=== PATIENT | male | born 1985 | race Two or more races ===

== ENCOUNTER 2016-07-16 18:14 | Emergency (ER) | payer OTHER ==
[2016-07-16 18:20] VITALS: BMI 24.7
[2016-07-16] MEDS ORDERED: SODIUM CHLORIDE 0.9% 1000 ML INFUS.BAG IV ONE (20:37)
--- NOTE | 2016-07-16 22:03 | PDOC ---
History of Present Illness - General Chief Complaint: Lightheaded Stated Complaint: NEAR SYNCOPE, BLURRED VISION Time Seen by Provider: 07/16/16 20:34 - History of Present Illness Initial Comments: 07/16/16 22:01 CHIEF COMPLAINT: dizziness, weakness HISTORY OF PRESENT ILLNESS: 31 yo M with no PMH presents to ED with dizziness, blurry vision, and near syncope while [place] in the park today. Patient reports that this is the third time this has happened and it began with " stomach problems" for which he was prescribed omeprazole by his PCP Dr. Inocencio Christopher with no relief. He stopped taking the omeprazole after 5 days. He states that he has had a decreased appetite for the past couple of weeks. He was previously taking many nutritional and herbal supplements including gingko biloba, ginseng, multivitamins, protein, and "pre-workout stuff", but since he has been feeling bad he stopped taking all of them approximately 2 weeks ago. He states that he has been having some weakness and fatigue and feels "like I am going to have a fever or get sick, but I don't." He does report that he has not been drinking a lot of water or fluids recently. PAST MEDICAL HISTORY: Denies past medical history FAMILY HISTORY: Denies SOCIAL HISTORY: Denies tobacco, alcohol, illicit drug use. SURGICAL HISTORY: Denies ALLERGIES: No known drug allergies REVIEW OF SYSTEMS General/Constitutional: Weakness, chills. No fever. HEENT: Blurry vision today. Denies ear pain or discharge. Denies sore throat. Cardiovascular: Denies chest pain or shortness of breath. Respiratory: Denies cough, wheezing, or hemoptysis. Gastrointestinal: Denies nausea, vomiting, diarrhea or constipation. Denies rectal bleeding. Genitourinary: Denies dysuria, frequency, or change in urination. Musculoskeletal: Denies joint or muscle swelling or pain. Denies neck or back pain. Skin and breasts: Denies rash or easy bruising. Neurologic: Lightheadedness. Denies vertigo loss of consciousness, or loss of sensation. PHYSICAL EXAM General Appearance: Well-appearing, appropriately dressed. No apparent distress. HEENT: EOMI, PERRLA, normal ENT inspection, normal voice, TMs normal, pharynx normal. No conjunctival pallor. No photophobia, scleral icterus. Respiratory/Chest: Lungs CTAB. Cardiovascular: RRR. S1, S2. Gastrointestinal/Abdominal: Marked tenderness to LLQ. Normal bowel sounds. No organomegaly, pulsatile mass, guarding, hernia, hepatomegaly, splenomegaly. Lymphatic: No adenopathy, tenderness. Musculoskeletal/Extremities: Normal inspection. FROM of all extremities, normal capillary refill. Pelvis Stable. No CVA tenderness. No tenderness to extremities, pedal edema, swelling, erythema or deformity. Integumentary: Appropriate color, dry, warm. No cyanosis, erythema, jaundice or rash Neurologic: teacher advisor II-XII intact. Fully oriented, alert. Appropriate mood/affect. Motor strength 5/5. No appreciable EOM palsy, facial droop or sensory deficit. 07/16/16 22:07 Past History - Past Medical History Allergies/Adverse Reactions: Allergies Allergy/AdvReac Type Severity Reaction Status Date / Time No Known Allergies Allergy Verified 07/16/16 18:20 Home Medications: Ambulatory Orders NK [No Known Home Medication] 07/16/16 Anemia: No Asthma: No Cancer: No Cardiac Disorders: No CVA: No COPD: No CHF: No DVT: No Psychiatric Problems: Yes (ANXIETY) - Immunization History Immunization Up to Date: No - Psycho/Social/Smoking Cessation Hx Anxiety: Yes Suicidal Ideation: No Smoking History: Never smoked Have you smoked in the past 12 months: No Information on smoking cessation initiated: No Hx Alcohol Use: No Drug/Substance Use Hx: No Substance Use Type: None Hx Substance Use Treatment: No *Physical Exam - Vital Signs Last Vital Signs Temp Pulse Resp BP Pulse Ox 71 18 135/91 98 07/16/16 18:17 07/16/16 18:17 07/16/16 18:17 07/16/16 18:17 ED Treatment Course - LABORATORY CBC & Chemistry Diagram: 07/17/16 01:08 07/16/16 22:12 *DC/Admit/Observation/Transfer Diagnosis at time of Disposition: Symptoms of dehydration - Discharge Dispostion Disposition: HOME Condition at time of disposition: Improved Admit: No - Referrals Referrals: Inocencio Christopher [Primary Care Provider] - - Patient Instructions Printed Discharge Instructions: DI for Dehydration -- Adult Additional Instructions: As discussed, please follow up with Dr. Christopher by the end of the week. Please drink plenty of fluids to stay hydrated when you exercise. If you experience any abdominal pain, nausea, vomiting, diarrhea, fever, chills, shortness of breath, chest pain, headache, or any new or worsening symptoms, please return to the ER immediately. - Post Discharge Activity Work/School Note: Back to Work
[2016-07-16 22:44] LABS: ALBUMIN 4.1 g/dl (3.4-5.0); ANION GAP 7 (8-16); BILIRUBIN,TOTAL 0.6 mg/dL (0.2-1.0); CO2 30 mmol/L (21-32); COCKROFT - GAULT 99.88; CREATININE 1.1 mg/dL (0.7-1.3); GLUCOSE,RANDOM 78 mg/dL (74-106); SGOT/AST 23 U/L (15-37); SGPT/ALT 45 U/L (12-78); TOT PROT 7.2 g/dl (6.4-8.2)
[2016-07-16 22:46] LABS: ALK PHOS 101 U/L (45-117); TROPONIN I < 0.02 ng/ml (0.00-0.05)
[2016-07-16] MEDS ORDERED: FOLIC ACID INJECTION - 1 MG, THIAMINE HCL 100 MG, MULTIVIT INJECTION ADULT 10 ML in SOD... IVPB ONE (23:14)
[2016-07-16] MEDS ORDERED: MECLIZINE HCL 25 MG TABLET (FP) PO ONE (23:14)
[2016-07-16] MEDS ORDERED: MECLIZINE HCL 25 MG TABLET (FP) ONE (23:41)
[2016-07-17 01:19] LABS: BASOPHIL 0.3 % (0-2.0); EOSINOPHIL 1.7 % (0-4.5); MCH 31.9 pg (25.7-33.7); MCHC 33.8 g/dl (32.0-35.9); MEAN CELL VOLUME 94.4 fl (80-96); NEUTROPHILS 53.1 % (42.8-82.8); PLATELET COUNT 162 K/MM3 (134-434); RDW 12.3 % (11.9-15.9)
[2016-07-17 02:48] VITALS: BP 126/74; PULSE 70; TEMP 98.1
--- NOTE | 2016-07-17 14:42 | EKG ---
Test Reason : Blood Pressure : / mmHG Vent. Rate : 057 BPM Atrial Rate : 057 BPM P-R Int : 164 ms QRS Dur : 082 ms QT Int : 386 ms P-R-T Axes : 056 020 022 degrees QTc Int : 375 ms SINUS BRADYCARDIA EARLY REPOLARIZATION OTHERWISE NORMAL ECG WHEN COMPARED WITH ECG OF 18-DEC-2015 19:46, NO SIGNIFICANT CHANGE WAS FOUND Confirmed by MIC TOWNSEND MD ([id number]) on 07/17/2016 2:42:16 PM Referred By: Confirmed By:MIC TOWNSEND MD
== END 2016-07-17 02:48 | disposition home or self-care (01) ==
LOC: JER 18:14
PROC: 3E033GC Introduction of Other Therapeutic Substance into Peripheral Vein, Percutaneous Approach (ICD-10-PCS; principal; 2016-07-16)
DX: E86.0 Dehydration (principal); F41.9 Anxiety disorder, unspecified
CPT/HCPCS: 36415; 80053; 82550; 82553; 84484; 85025; 93005; 93010; 96365; 99283-25

== ENCOUNTER 2019-03-02 00:50 | Emergency (ER) | payer OTHER ==
[2019-03-02 00:58] VITALS: BP 126/81; PULSE 59; TEMP 97.9; BMI 26.7
--- NOTE | 2019-03-02 01:31 | PDOC ---
*Physical Exam - Vital Signs Last Vital Signs Temp Pulse Resp BP Pulse Ox 97.9 F 59 L 18 126/81 100 03/02/19 00:56 03/02/19 00:56 03/02/19 00:56 03/02/19 00:56 03/02/19 00:56 Medical Decision Making - Medical Decision Making 03/02/19 01:31 Patient seen by the advanced practice provider under my direct supervision. Ancillary testing reviewed as necessary. I agree with plan as outlined by the advanced practice provider. Discharge - Discharge Information Problems reviewed: Yes Clinical Impression/Diagnosis: Abrasion forearm Qualifiers: Encounter type: initial encounter Laterality: right Qualified Code(s): S50.811A - Abrasion of right forearm, initial encounter Disposition: HOME - Follow up/Referral Referrals: Edison Gómez MD [Primary Care Provider] - - Patient Discharge Instructions Patient Printed Discharge Instructions: DI for Abrasion Additional Instructions: apply bacitracin to the area follow up with your doctor in 2 days for a wound check - Post Discharge Activity
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
[2019-03-02] MEDS ORDERED: BACITRACIN 15 GM TUBE TOPICAL OINTMENT TP ONE (01:49)
[2019-03-02] MEDS ORDERED: TETANUS AND DIPHTHERIA TOXOID 0.5 ML DISP.SYRIN IM ONE (01:49)
== END 2019-03-02 02:45 | disposition home or self-care (01) ==
LOC: JER 00:50
PROC: 3E0234Z Introduction of Serum, Toxoid and Vaccine into Muscle, Percutaneous Approach (ICD-10-PCS; principal; 2019-03-02)
DX: S50.811A Abrasion of right forearm, initial encounter (principal); F41.9 Anxiety disorder, unspecified; W22.8XXA Striking against or struck by other objects, initial encounter; Y93.89 Activity, other specified; Y92.89 Other specified places as the place of occurrence of the external cause; Y99.0 Civilian activity done for income or pay
CPT/HCPCS: 90471; 99283-25

== ENCOUNTER 2022-04-25 19:12 | Emergency (ER) | payer OTHER ==
[2022-04-25 19:26] VITALS: BP 135/88; PULSE 69; RESP 19; TEMP 97.9; BMI 25.7
[2022-04-25] MEDS ORDERED: FAMOTIDINE 20 MG/50 ML IVPB 20 MG/50 ML MG IVPB ONE ×3 (20:32→20:54)
[2022-04-25] MEDS ORDERED: ONDANSETRON 4 MG/2 ML VIAL IVPUSH ONE (20:32)
[2022-04-25] MEDS ORDERED: MAG HYDROX/AL HYDROX/SIMETH 30 ML UNIT-DOSE CUP PO ONE (20:32)
[2022-04-25] MEDS ORDERED: SODIUM CHLORIDE 0.9% 500 ML INFUS.BAG IV ONE ×2 (20:32→22:45)
[2022-04-25] MEDS ORDERED: MAG HYDROX/AL HYDROX/SIMETH 30 ML UNIT-DOSE CUP ONE (20:51)
[2022-04-25] MEDS ORDERED: ONDANSETRON 4 MG/2 ML VIAL ONE (20:51)
[2022-04-25 21:30] LABS: BASO % 0.2 % (0-2.0); EOS % 0.4 % (0-4.5); HEMOGLOBIN 16.8 GM/dL (11.7-16.9); LYMPH % 17.5 % (8-40); MCH 32.9 pg (25.7-33.7); MEAN PLT VOLUME 8.8 fl (7.5-11.1); MONO % 6.7 % (3.8-10.2); NEUT % 75.2 % (42.8-82.8); PLATELET COUNT 158 10^3/uL (134-434); RBC 5.11 M/mm3 (4.00-5.60); RDW 14.5 % (11.9-15.9); WHITE BLOOD COUNT 6.3 K/mm3 (4.0-10.0)
[2022-04-25 22:22] LABS: ALBUMIN 4.3 g/dl (3.4-5.0); ALK PHOS 111 U/L (45-117); ANION GAP 8 MMOL/L (8-16); BILIRUBIN,TOTAL 0.8 mg/dL (0.2-1); BLOOD UREA NITROGEN 17.4 mg/dL (7-18); CALCIUM 9.3 mg/dL (8.5-10.1); CHLORIDE 108 mmol/L (98-107); CO2 21 mmol/L (21-32); CREATININE 1.1 mg/dL (0.55-1.3); GLUCOSE,RANDOM 91 mg/dL (74-106); LIPASE 50 U/L (73-393); MAGNESIUM 2.1 mg/dL (1.8-2.4); SGOT/AST 41 U/L (15-37); SGPT/ALT 59 U/L (13-61); SODIUM 136 mmol/L (136-145); TOT PROT 7.9 g/dl (6.4-8.2)
[2022-04-25 23:43] LABS: CALCIUM 8.8 mg/dL (8.5-10.1)
[2022-04-25 23:44] LABS: BLOOD UREA NITROGEN 17.2 mg/dL (7-18)
[2022-04-25 23:47] LABS: CREATININE 1.1 mg/dL (0.55-1.3)
== END 2022-04-26 01:52 | disposition home or self-care (01) ==
LOC: JER 19:12
PROC: 3E033GC Introduction of Other Therapeutic Substance into Peripheral Vein, Percutaneous Approach (ICD-10-PCS; principal; 2022-04-25)
DX: R10.13 Epigastric pain (principal); R11.2 Nausea with vomiting, unspecified
CPT/HCPCS: 36415; 80048; 80053; 83690; 83735; 84132; 85025; 96365; 96375; 99284-25

== ENCOUNTER 2022-12-26 19:56 | Emergency (ER) | payer OTHER ==
[2022-12-26 20:03] VITALS: BP 130/90; PULSE 71; RESP 20; TEMP 98.5; BMI 27.3
[2022-12-26] MEDS ORDERED: MAG HYDROX/AL HYDROX/SIMETH -MYLANTA- ORAL SUSPENSION PO ONE (20:40)
[2022-12-26] MEDS ORDERED: FAMOTIDINE 10 MG TABLET PO ONE (20:40)
[2022-12-26] MEDS ORDERED: FAMOTIDINE 10 MG TABLET ONE (20:48)
[2022-12-26] MEDS ORDERED: MAG HYDROX/AL HYDROX/SIMETH 30 ML UNIT-DOSE CUP ONE (20:49)
== END 2022-12-26 21:17 | disposition left against medical advice (07) ==
LOC: JER 19:56
DX: R13.10 Dysphagia, unspecified (principal); R05.9 Cough, unspecified
CPT/HCPCS: 99283-25

== ENCOUNTER 2023-03-24 23:40 | Emergency (ER) | payer OTHER ==
[2023-03-24 23:47] VITALS: BP 118/76; PULSE 82; RESP 17; TEMP 97.5; BMI 24.3
[2023-03-25] MEDS ORDERED: KETOROLAC TROMETHAMINE 30 MG/1 ML VIAL IM ONE (01:32)
[2023-03-25] MEDS ORDERED: KETOROLAC TROMETHAMINE 30 MG/1 ML VIAL ONE (01:46)
== END 2023-03-25 03:13 | disposition home or self-care (01) ==
LOC: JER 23:40 → JERFT 23:40 → JER 03-25 03:13
PROC: 3E0233Z Introduction of Anti-inflammatory into Muscle, Percutaneous Approach (ICD-10-PCS; principal; 2023-03-25)
DX: M25.561 Pain in right knee (principal); M25.461 Effusion, right knee
CPT/HCPCS: 73562-TC-RT-FY; 96372; 99284-25